=== PATIENT | female | born 1995 | race Caucasian/White ===

== ENCOUNTER 2021-08-01 19:33 | Emergency (ER) | payer OTHER ==
[~2021-08-01] VITALS: Ht 160 cm; Wt 54.4 kg
[2021-08-01 19:35] VITALS: BP 118/76
[2021-08-01 21:00] VITALS: BP 118/76
== END 2021-08-01 21:00 | disposition home or self-care (01) ==
LOC: MED 19:33
DX: F12.929 Cannabis use, unspecified with intoxication, unspecified (principal); J45.909 Unspecified asthma, uncomplicated
CPT/HCPCS: 99283

== ENCOUNTER 2022-12-01 06:13 | Emergency (ER) | payer OTHER ==
[~2022-12-01] VITALS: Ht 160 cm; Wt 50.3 kg
[2022-12-01 06:15] VITALS: BP 122/77
--- NOTE | 2022-12-01 06:15 | NUR ---
TO BED AMBULATORY
--- NOTE | 2022-12-01 06:38 | NUR ---
MD Sarah at bedside examining pt.
--- NOTE | 2022-12-01 06:38 | NUR ---
PT IS HERE BECAUSE SHE FEEL PALPITATION AFTER TAKING ALBUTEROL AROUND 2AM. SHE WANTED TO KNOW WHY HER HEART RATE REMAINS ELEVATED. PT ALERTT AND ORIENTED X4. AMBULATORY . PAST MEDICAL HISTORY [facility]
[2022-12-01] MEDS ORDERED: METOPROLOL 50 MG TAB PO ONE (06:40)
[2022-12-01 06:41] VITALS: BP 122/77
[2022-12-01 07:09] LABS: BASOPHILS % (AUTO) 0.2 % (0.0-2.0); EOSINOPHILS % (AUTO) 0.3 % (0.0-4.0); HEMATOCRIT 36.6 % (36-48); HEMOGLOBIN 12.2 g/dL (12.0-16.0); LYMPHOCYTES # (AUTO) 0.9 K/uL (2.5-16.5); LYMPHOCYTES % (AUTO) 7.4 % (20.5-51.1); MEAN CORPUSCULAR HEMOGLOBIN 31 pg (27-31); MEAN CORPUSCULAR HGB CONC 33 g/dL (33-37); MEAN CORPUSCULAR VOLUME 93.4 fL (80-94); MONOCYTES % (AUTO) 8.5 % (1.7-9.3); NEUTROPHILS # (AUTO) 10.1 K/uL (1.8-7.7); NEUTROPHILS % (AUTO) 83.6 % (42.2-75.2); PLATELET COUNT (AUTO) 216 K/uL (140-450); RED BLOOD CELL COUNT(AUTO) 3.92 MIL/uL (4.20-5.40); RED CELL DISTRIBUTION WIDTH 13.9 % (11.6-13.7)
[2022-12-01 07:21] LABS: ANION GAP 11.3 (8-16); CARBON DIOXIDE 26.1 mmol/L (21-32); CREATININE 0.7 mg/dL (0.6-1.3); POTASSIUM 3.4 mmol/L (3.5-5.1)
--- NOTE | 2022-12-01 07:30 | NUR ---
REPORT RECEIVED FROM TIFFANY LLANOS. ASSUMED CARE AT THIS TIME
--- NOTE | 2022-12-01 07:35 | NUR ---
pt at rest w/ hob raised. states relief. respirations even and unlabored. on compliance monitor
[2022-12-01] MEDS ORDERED: BENZ-300 PO (07:41)
--- NOTE | 2022-12-01 07:50 | NUR ---
Patient discharged with v/s stable. Written and verbal after care instructions FOR PALPITATIONS AND SORE THROAT given and explained. Patient alert, oriented and verbalized understanding of instructions. Ambulatory with steady gait. All questions addressed prior to discharge. ID band removed. Patient advised to follow up with PMD. Rx of BENZOCAINE/ MENTHOL given. Opportunity to ask questions provided and answered.
--- NOTE | 2022-12-01 07:51 | NUR ---
The patient's care was reviewed and supervised by Caitlin Bethea, RN, RN.
== END 2022-12-01 07:50 | disposition home or self-care (01) ==
LOC: MED 06:13
DX: R00.2 Palpitations (principal); J02.8 Acute pharyngitis due to other specified organisms; B97.89 Other viral agents as the cause of diseases classified elsewhere; J45.909 Unspecified asthma, uncomplicated; Z79.899 Other long term (current) drug therapy
CPT/HCPCS: 36415; 80048; 85025; 93005; 99284

== ENCOUNTER 2024-04-01 15:10 | Inpatient (IN) | payer OTHER ==
[~2024-04-01] VITALS: Ht 160 cm; Wt 65.8 kg
[~2024-04-01 15:10] MED LIST: BENZ-300 PO
[2024-04-01] MEDS ORDERED: FLUT1DSK IH (16:45)
[2024-04-01] MEDS ORDERED: PREN-543 PO (16:45)
[2024-04-01] MEDS ORDERED: OXYTOCIN 10 UNITS/ML VIAL IM SCH (17:00)
[2024-04-01] MEDS ORDERED: METHYLERGONOVINE 0.2 MG/ML AMP IM PRN (17:00)
[2024-04-01] MEDS ORDERED: LACTATED RINGERS 500 ML IV ONE (17:00)
[2024-04-01] MEDS ORDERED: CARBOPROST 250 MCG/ML AMP IM PRN (17:00)
[2024-04-01 17:34] LABS: APPEARANCE,URINE CLEAR (CLEAR); BILIRUBIN,URINE NEGATIVE (NEGATIVE); BLOOD, URINE TRACE-I (NEGATIVE); COLOR,URINE YELLOW (YELLOW); LEUKOCYTE ESTERASE ,URINE NEGATIVE (NEGATIVE); NITRITE, URINE NEGATIVE (NEGATIVE); PROTEIN,URINE NEGATIVE (NEGATIVE); UGLUCOSE NEGATIVE (NEGATIVE); UROBILINOGEN,URINE 0.2 EU/dL (0.2 - 1)
[2024-04-01 17:35] LABS: BASOPHILS % (AUTO) 0.1 % (0.0-2.0); EOSINOPHILS # (AUTO) 0.1 K/uL (0-0.4); EOSINOPHILS % (AUTO) 0.8 % (0.0-4.0); HEMATOCRIT 37.3 % (36-48); HEMOGLOBIN 12.5 g/dL (12.0-16.0); LYMPHOCYTES # (AUTO) 1.1 K/uL (2.5-16.5); LYMPHOCYTES % (AUTO) 15.5 % (20.5-51.1); MEAN CORPUSCULAR HEMOGLOBIN 31 pg (27-31); MEAN CORPUSCULAR HGB CONC 34 g/dL (33-37); MEAN CORPUSCULAR VOLUME 93.1 fL (80-94); MONOCYTES # (AUTO) 0.7 K/uL (0.8-1.0); MONOCYTES % (AUTO) 10.7 % (1.7-9.3); NEUTROPHILS # (AUTO) 4.9 K/uL (1.8-7.7); NEUTROPHILS % (AUTO) 72.9 % (42.2-75.2); PLATELET COUNT (AUTO) 257 K/uL (140-450); RED CELL DISTRIBUTION WIDTH 14.9 % (11.6-13.7); WHITE BLOOD COUNT (AUTO) 6.8 K/uL (4.8-10.8)
[2024-04-01 17:47] LABS: INR 0.96 (0.8-1.2); PARTIAL THROMBOPLASTIN TIME 27.5 secs (22-35.6); PROTHROMBIN TIME 10.1 secs (10.8-13.4)
[2024-04-01] MEDS: LACTATED RINGERS 1,000 ML IV SCH (17:52)
[2024-04-01 17:56] LABS: ANION GAP 10.9 (8-16); CALCIUM 8.9 mg/dL (8.5-10.1); CARBON DIOXIDE 27.6 mmol/L (21-32); CREATININE 0.5 mg/dL (0.6-1.3); POTASSIUM 3.5 mmol/L (3.5-5.1); TOTAL BILIRUBIN 0.4 mg/dL (0.0-1.0); TOTAL PROTEIN, SERUM 7.1 g/dL (6.4-8.2)
[2024-04-01 18:04] VITALS: BP 113/61; PULSE 90; RESP 18; TEMP 98.4
[2024-04-01 22:10] VITALS: BP 110/63; PULSE 81; RESP 18
[2024-04-01] MEDS: MORPHINE SULFATE 10 MG/ML VIAL IVP PRN (22:10)
[2024-04-01] MEDS: ONDANSETRON 4 MG/2 ML VIAL IVP PRN (22:12)
[2024-04-02] MEDS: MISOPROSTOL 25 MCG TAB PO PRN (00:42)
[2024-04-02] MEDS ORDERED: ROPIVACAINE 0.2%/NS PREMIX 200 ML EPI SCH (02:15)
[2024-04-02] MEDS ORDERED: AMPICILLIN 2,000 MG VIAL ONE (04:48)
[2024-04-02] MEDS: AMPICILLIN 2,000 MG in NACL 0.9% MINI-BAG PLUS 100 ML IV SCH (04:58)
[2024-04-02] MEDS ORDERED: MEDS-TO-BEDS MC SCH (09:00)
[2024-04-02] MEDS: AMPICILLIN 1,000 MG in NACL 0.9% MINI-BAG PLUS 50 ML IV SCH (09:05)
[2024-04-02] MEDS: DEXT 5% / LACT RING 1,000 ML IV SCH (12:40)
[2024-04-02] MEDS ORDERED: AMPICILLIN 1,000 MG VIAL ONE ×2 (16:57→21:25)
[2024-04-02] MEDS: OXYTOCIN/0.9 % SODIUM CHLORIDE 500 ML IV SCH (20:37)
[2024-04-03] MEDS ORDERED: AMPICILLIN 1,000 MG VIAL ONE ×5 (01:40→17:34)
[2024-04-03] MEDS: AMPICILLIN 1,000 MG VIAL ONE ×2 (09:31→17:37)
[2024-04-03] MEDS ORDERED: LIDOCAINE 1% 500 MG/50 ML VIAL ONE (19:53)
[2024-04-03] MEDS ORDERED: OXYTOCIN 10 UNITS/ML VIAL IM PRN (20:05)
[2024-04-03] MEDS ORDERED: BENZOCAINE/MENTHOL 20%-0.5% 60 GM CAN TP PRN (20:05)
[2024-04-03] MEDS ORDERED: IBUPROFEN 800 MG TAB PO PRN (20:05)
[2024-04-03] MEDS ORDERED: METHYLERGONOVINE 0.2 MG/ML AMP IM PRN (20:05)
[2024-04-03] MEDS ORDERED: MEASLES, MUMPS, AND RUBELLA 1 VIAL SQVAC ONE (20:05)
[2024-04-03] MEDS ORDERED: METHYLERGONOVINE 0.2 MG TAB PO PRN (20:05)
[2024-04-04 06:31] LABS: HEMATOCRIT 34.3 % (36-48); HEMOGLOBIN 11.6 g/dL (12.0-16.0)
[2024-04-05] MEDS: IBUPROFEN 800 MG TAB PO PRN (00:33)
== END 2024-04-05 15:00 | disposition home or self-care (01) | DRG 560 ==
LOC: OBSVTOIN 15:10 → MFCC 15:10
PROVIDERS: ADMIT Obstetrics & Gynecology; ATTEND Obstetrics & Gynecology
PROC: 10E0XZZ Delivery of Products of Conception, External Approach (ICD-10-PCS; principal; 2024-04-03)
PROC: 3E0R3BZ Introduction of Anesthetic Agent into Spinal Canal, Percutaneous Approach (ICD-10-PCS; 2024-04-03)
PROC: 00HU33Z Insertion of Infusion Device into Spinal Canal, Percutaneous Approach (ICD-10-PCS; 2024-04-03)
PROC: 0KQM0ZZ Repair Perineum Muscle, Open Approach (ICD-10-PCS; 2024-04-03)
DX: O99.824 Streptococcus B carrier state complicating childbirth (principal); Z37.0 Single live birth; O70.1 Second degree perineal laceration during delivery; Z3A.39 39 weeks gestation of pregnancy
CPT/HCPCS: 36415; 51702; 59200; 59409; 80053; 81003; 82948; 85018; 85025; 85610; 85730; 86592; 86886; 86900; 86901; J0290; J2001; J2270; J2405; J2590; J2795; J7120